=== PATIENT | female | born 1960 | race Caucasian/White ===

== ENCOUNTER 2018-11-29 17:21 | Emergency (ER) | payer MEDICAID ==
[~2018-11-29] VITALS: Ht 167.6 cm; Wt 122.5 kg
[~2018-11-29 17:21] MED LIST: AMLODIPINE; BISACODYL
[2018-11-29 17:45] VITALS: BP_SYST 163
[2018-11-29] MEDS ORDERED: IBUPROFEN 600 MG TABLET PO ONE (18:30)
[2018-11-29] MEDS ORDERED: BACITRACIN ZINC 15 GM TOPICAL OINTMENT TP ONE (18:45)
[2018-11-29] MEDS ORDERED: BACITRACIN 1 GM OINT TP ONE ×2 (19:01→20:26)
[2018-11-29 20:39] VITALS: BP_SYST 163
== END 2018-11-29 20:38 | disposition home or self-care (01) ==
LOC: SED 17:21
DX: S86.911A Strain of unspecified muscle(s) and tendon(s) at lower leg level, right leg, initial encounter (principal); S86.912A Strain of unspecified muscle(s) and tendon(s) at lower leg level, left leg, initial encounter; I10 Essential (primary) hypertension; Z88.0 Allergy status to penicillin; W01.0XXA Fall on same level from slipping, tripping and stumbling without subsequent striking against object, initial encounter; Y93.89 Activity, other specified; Y92.481 Parking lot as the place of occurrence of the external cause; Y99.8 Other external cause status
CPT/HCPCS: 99283

== ENCOUNTER 2020-12-08 15:30 | Emergency (ER) | payer MEDICAID ==
[~2020-12-08] VITALS: Ht 165.1 cm; Wt 129.3 kg
[2020-12-08 15:45] VITALS: BP_SYST 155
[2020-12-08 16:53] LABS: BILIRUBIN,URINE NEGATIVE (NEGATIVE); BLOOD, URINE 3+ (NEGATIVE); COLOR,URINE YELLOW (YELLOW); GLUCOSE,URINE NEGATIVE (NEGATIVE); KETONES,URINE TRACE (NEGATIVE); LEUKOCYTE ESTERASE ,URINE NEGATIVE (NEGATIVE); NITRITE, URINE POSITIVE (NEGATIVE); PROTEIN URINE NEGATIVE (NEGATIVE); UROBILINOGEN,URINE 0.2 (0.2-1.0)
[2020-12-08 16:58] LABS: CLARITY/URINE HAZY (CLEAR)
[2020-12-08 17:08] LABS: BACTERIA,URINE MANY /HPF (None Seen); RBC,URINE >100 /HPF (0-3)
[2020-12-08 17:09] LABS: MUCUS,URINE None Seen /LPF (None Seen)
[2020-12-08 18:39] LABS: BASOPHILS # (AUTO) 0.1 K/uL (0.0-0.2); BASOPHILS % (AUTO) 0.8 % (0.0-2.0); EOSINOPHILS # (AUTO) 0.2 K/uL (0.0-0.4); EOSINOPHILS % (AUTO) 1.6 % (0.0-4.0); HEMATOCRIT 41.8 % (36-48); LYMPHOCYTES # (AUTO) 3.6 K/uL (1.0-5.5); LYMPHOCYTES % (AUTO) 34.5 % (20.5-51.5); MEAN CORPUSCULAR HEMOGLOBIN 32 pg (27-31); MEAN CORPUSCULAR HGB CONC 34 % (32-36); MEAN CORPUSCULAR VOLUME 94 fL (79.0-98.0); MONOCYTES % (AUTO) 9.9 % (1.7-9.3); NEUTROPHILS # (AUTO) 5.5 K/uL (1.8-7.7); NEUTROPHILS % (AUTO) 53.2 % (40.0-70.0); PLATELET COUNT (AUTO) 287 K/uL (130-430); RED BLOOD CELL COUNT(AUTO) 4.45 MIL/uL (4.2-6.2); RED CELL DISTRIBUTION WIDTH 14.3 % (9.0-15.0); WHITE BLOOD COUNT (AUTO) 10.3 K/uL (4.8-10.8)
[2020-12-08 19:06] LABS: CALCIUM 9.3 mg/dL (8.4-11.0); CREATININE 0.69 mg/dL (0.55-1.30); POTASSIUM 4.3 mmol/L (3.5-5.1)
[2020-12-08 19:12] LABS: ALBUMIN 3.5 g/dL (3.4-4.8); TOTAL BILIRUBIN 0.2 mg/dL (0.0-1.0)
[2020-12-08 19:21] LABS: C-REACTIVE PROTEIN QUANT 6.3 mg/dL (0-0.5)
[2020-12-08 19:42] LABS: PROTHROMBIN TIME 10.3 SECS (9.5-12.5)
[2020-12-08] MEDS ORDERED: cefTRIAXone 1 GM VIAL IM ONE (20:15)
[2020-12-08] MEDS ORDERED: IBUP-1969 PO (20:24)
[2020-12-08] MEDS ORDERED: NITR-85 PO (20:24)
[2020-12-08 20:37] VITALS: BP_SYST 133
== END 2020-12-08 20:37 | disposition home or self-care (01) ==
LOC: SED 15:30
DX: N12 Tubulo-interstitial nephritis, not specified as acute or chronic (principal); E11.9 Type 2 diabetes mellitus without complications; I10 Essential (primary) hypertension; Z88.0 Allergy status to penicillin
CPT/HCPCS: 36415; 74176; 76376; 80053; 81000; 82150; 83605; 83690; 85025; 85610; 85730; 86140; 87086; 96372; 99284; J0696

== ENCOUNTER 2021-03-17 18:34 | Emergency (ER) | payer MEDICAID ==
[~2021-03-17] VITALS: Ht 165.1 cm; Wt 133.4 kg
[~2021-03-17 18:34] MED LIST changes: +IBUP-1969 PO; +NITR-85 PO
[2021-03-17 18:51] VITALS: BP_SYST 163
--- NOTE | 2021-03-17 18:58 | NUR ---
Patient to ER bed 04 to gown for evaluation. Side rails up.
--- NOTE | 2021-03-17 19:05 | NUR ---
Received endorsement from day shift this 60 year old female, AAOX4, breathing spontaneously at room air, not in distress noted. With chief complaints of left foot pain for several days and painfull urination. History of HTN, DM, sleep apnea and Hernia. Allergy to Penicillin G. Vital signs stable.
--- NOTE | 2021-03-17 19:15 | NUR ---
Seen and examined by Dr. Ghotra
--- NOTE | 2021-03-17 19:48 | NUR ---
For discharge, apparently patient complaining of UTI, Dr. Ghotra informed and ordered for urinalysis
--- NOTE | 2021-03-17 20:00 | NUR ---
Voided freely at the toilet, clear urine sample collected and sent to lab
[2021-03-17 20:19] LABS: BILIRUBIN,URINE NEGATIVE (NEGATIVE); BLOOD, URINE NEGATIVE (NEGATIVE); CLARITY/URINE CLEAR (CLEAR); COLOR,URINE YELLOW (YELLOW); GLUCOSE,URINE TRACE (NEGATIVE); KETONES,URINE NEGATIVE (NEGATIVE); LEUKOCYTE ESTERASE ,URINE NEGATIVE (NEGATIVE); NITRITE, URINE NEGATIVE (NEGATIVE); PROTEIN URINE NEGATIVE (NEGATIVE)
--- NOTE | 2021-03-17 20:21 | NUR ---
Urinalysis results in and negative for UTI, re-assesed by Dr. AGOSTO, for discharge
--- NOTE | 2021-03-17 20:40 | NUR ---
Bootie applied at left foot, neurovascular assessment done before and after application.
[2021-03-17 20:58] VITALS: BP_SYST 143
== END 2021-03-17 20:58 | disposition home or self-care (01) ==
LOC: SED 18:34
DX: S93.402A Sprain of unspecified ligament of left ankle, initial encounter (principal); I10 Essential (primary) hypertension; E11.9 Type 2 diabetes mellitus without complications; Z79.899 Other long term (current) drug therapy; Z88.0 Allergy status to penicillin; W18.39XA Other fall on same level, initial encounter; Y93.89 Activity, other specified; Y92.89 Other specified places as the place of occurrence of the external cause; Y99.8 Other external cause status
CPT/HCPCS: 81003; 99284

== ENCOUNTER 2021-12-21 17:37 | Emergency (ER) | payer MEDICAID ==
[~2021-12-21] VITALS: Ht 165.1 cm; Wt 128.8 kg
[2021-12-21 18:23] VITALS: BP_SYST 123
--- NOTE | 2021-12-21 19:36 | NUR ---
Patient triaged and placed in waiting room. VSS and patient appears in no acute distress at this time. Accompanied by self, awaiting available bed, and MD notified of need for MSE.
--- NOTE | 2021-12-21 19:38 | NUR ---
Pt brought by family,A&Ox4, pt presents to ER with neck pain/back pain and rufino hip pain, pt states pain started after falling in september, pt also c/o one episode of abd pain and nausea last week, pt afebrile, skin pink and warm, cap refill <3, VSS, respirations even and unlabored.
--- NOTE | 2021-12-21 22:09 | NUR ---
Patient to ER bed 07 to gown for evaluation. Side rails up. Report given to BILL CARBAJAL
--- NOTE | 2021-12-21 22:43 | NUR ---
PT SITTING UP IN BED, IN NAD. RESP EVEN AND UNLABORED, ON RA @96%.
--- NOTE | 2021-12-22 00:23 | NUR ---
Patient given written and verbal discharge instructions and verbalizes understanding. ER MD discussed with patient the results and treatment provided. Patient in stable condition. ID arm band removed. Patient educated on pain management and to follow up with PMD. Pain Scale . Opportunity for questions provided and answered. Medication side effect fact sheet provided.
[2021-12-22 00:25] VITALS: BP_SYST 123
== END 2021-12-22 00:25 | disposition home or self-care (01) ==
LOC: SED 17:37
DX: D25.9 Leiomyoma of uterus, unspecified (principal); M79.18 Myalgia, other site; K43.9 Ventral hernia without obstruction or gangrene; E11.9 Type 2 diabetes mellitus without complications; I10 Essential (primary) hypertension; Z88.0 Allergy status to penicillin
CPT/HCPCS: 72040-TC; 72072-TC; 76376; 99284

== ENCOUNTER 2022-02-19 17:41 | Emergency (ER) | payer MEDICAID ==
[~2022-02-19] VITALS: Ht 165.1 cm; Wt 129.3 kg
[2022-02-19 18:03] VITALS: BP_SYST 148
--- NOTE | 2022-02-19 18:30 | NUR ---
Patient to ER bed 06 to gown for evaluation. Side rails up.
--- NOTE | 2022-02-19 18:32 | NUR ---
Pt brought by self, A&Ox4, pt presents to ER with back pain and frequency with urination, pt also c/o hair falling, VSS, skin pink and warm, cap refill <3.
[2022-02-19] MEDS ORDERED: cefTRIAXone 1 GM in LIDOCAINE 1%, 20 ML MDV 2.1 ML IM ONE (18:45)
[2022-02-19] MEDS ORDERED: KETOROLAC TROMETHAMINE 60 MG/2 ML VIAL IM ONE ×2 (18:45→19:07)
--- NOTE | 2022-02-19 18:45 | NUR ---
Dr Boland evaluating patient at bedside
[2022-02-19 19:18] LABS: BILIRUBIN,URINE NEGATIVE (NEGATIVE); COLOR,URINE YELLOW (YELLOW); GLUCOSE,URINE NEGATIVE (NEGATIVE); KETONES,URINE TRACE (NEGATIVE); LEUKOCYTE ESTERASE ,URINE NEGATIVE (NEGATIVE); NITRITE, URINE POSITIVE (NEGATIVE); PH,URINE 5.5 (5.0-8.0); PROTEIN URINE NEGATIVE (NEGATIVE)
[2022-02-19] MEDS ORDERED: NITR-85 PO (19:32)
[2022-02-19] MEDS ORDERED: NAPR-1172 PO (19:32)
[2022-02-19 19:50] LABS: BLOOD, URINE TRACE (NEGATIVE)
[2022-02-19 19:51] LABS: CLARITY/URINE HAZY (CLEAR)
[2022-02-19 19:53] LABS: BACTERIA,URINE MODERATE /HPF (None Seen); MUCUS,URINE None Seen /LPF (None Seen); RBC,URINE NONE SEEN /HPF (0-3); WBC,URINE NONE SEEN /HPF (0-3)
--- NOTE | 2022-02-19 20:05 | NUR ---
Patient given written and verbal discharge instructions and verbalizes understanding. ER MD discussed with patient the results and treatment provided. Patient in stable condition. ID arm band removed. IV catheter removed intact and dressing applied, no active bleeding. Rx of UNK given. Patient educated on pain management and to follow up with PMD. Pain Scale . Opportunity for questions provided and answered. Medication side effect fact sheet provided. DISCHARGE BY MD HOLLINS
== END 2022-02-19 20:05 | disposition home or self-care (01) ==
LOC: SED 17:41
DX: N39.0 Urinary tract infection, site not specified (principal); M54.50 Low back pain, unspecified; E66.01 Morbid (severe) obesity due to excess calories; E11.9 Type 2 diabetes mellitus without complications; I10 Essential (primary) hypertension; F17.200 Nicotine dependence, unspecified, uncomplicated; Z88.0 Allergy status to penicillin; Z68.42 Body mass index [BMI] 45.0-49.9, adult
CPT/HCPCS: 81000; 87086; 96372; 99284; J0696; J1885; J2001

== ENCOUNTER 2022-09-20 14:11 | Emergency (ER) | payer MEDICAID ==
[~2022-09-20] VITALS: Ht 165.1 cm; Wt 130.2 kg
[~2022-09-20 14:11] MED LIST changes: +MECL-261 PO; +NAPR-1172 PO
[2022-09-20 15:01] VITALS: BP_SYST 97
[2022-09-20] MEDS ORDERED: CIPR500T5 PO (16:33)
[2022-09-20] MEDS ORDERED: TRAM50TA2 PO (16:33)
[2022-09-20] MEDS ORDERED: IBUP-1969 PO (16:33)
[2022-09-20 19:00] VITALS: BP_SYST 110
== END 2022-09-20 19:00 | disposition home or self-care (01) ==
LOC: SED 14:11
DX: S82.65XA Nondisplaced fracture of lateral malleolus of left fibula, initial encounter for closed fracture (principal); N39.0 Urinary tract infection, site not specified; E11.9 Type 2 diabetes mellitus without complications; I10 Essential (primary) hypertension; Z88.0 Allergy status to penicillin; Z79.899 Other long term (current) drug therapy; W22.09XA Striking against other stationary object, initial encounter; Y93.89 Activity, other specified; Y92.89 Other specified places as the place of occurrence of the external cause; Y99.8 Other external cause status
CPT/HCPCS: 73590-TC; 87086; 99284